=== PATIENT | female | born 1955 | race Caucasian/White ===

== ENCOUNTER → 2022-04-19 09:19 | Outpatient (CLI) | payer MEDICARE, OTHER, SELFPAY ==
--- NOTE | 2022-04-19 09:21 | DI.US.S_ITS ---
PROCEDURE: US PELVIC COMPLETE INDICATIONS: post menopausal bleeding x 8 mos TECHNIQUE: Real-time scanning was performed of the pelvic organs, with image documentation. Additional endovaginal scanning was necessary due to incomplete visualization of the adnexal and endometrial structures by transabdominal scanning. COMPARISON: None. FINDINGS: Uterus: Uterus is anteverted and mildly prominent in size at 9.8 x 3.1 x 5.3 cm. The myometrium is homogeneous. The endometrium measures 10 mm combined thickness. Ovaries: The right ovary measures 1.8 x 1.2 x 1.7 cm. The left is not visualized. The right ovary has a normal sonographic appearance. Other: No pathologic free abdominal or pelvic fluid. IMPRESSION: Thickened endometrium in a postmenopausal placement with history of bleeding. Endometrial biopsy is recommended as malignancy cannot be excluded. We strive to produce accurate, complete, and clear reports of imaging services. To assist us in improving patient care, this report was composed using standard report templates and voice recognition software. Therefore, it may contain abnormal punctuation, insertions and/or omissions. Occasional wrong-word or sound-alike substitutions may occur. Though we review the report and make efforts to correct it, we do recommend that the report be read carefully in proper context to recognize any text inaccuracies. Dictated by: Margo Palacios M.D. on 04/20/2022 at 16:14 Approved by: Margo Palacios M.D. on 04/20/2022 at 16:17
== END ==
PROVIDERS: Family Provider Family Medicine; PCP Physician Assistant; Referring Provider Physician Assistant; Visit Provider Physician Assistant
DX: N95.0 Postmenopausal bleeding (principal); N93.9 Abnormal uterine and vaginal bleeding, unspecified; Z79.890 Hormone replacement therapy; R06.83 Snoring; M16.12 Unilateral primary osteoarthritis, left hip; Z53.20 Procedure and treatment not carried out because of patient's decision for unspecified reasons; R93.89 Abnormal findings on diagnostic imaging of other specified body structures
CPT/HCPCS: 76830; 76856

== ENCOUNTER → 2022-06-08 11:50 | Outpatient (CLI) | payer MEDICARE, OTHER, SELFPAY ==
--- NOTE | 2022-06-08 11:52 | DI.MRI.S_ITS ---
PROCEDURE: MR HIP LT WO CON INDICATIONS: chronic left OA, numbness TECHNIQUE: Noncontrast coronal T1 spin echo and STIR through the bony pelvis. Coronal and axial T2 fast spin echo with fat saturation, sagittal T1 spin echo, and oblique axial T2 fast spin echo with fat saturation through the hip. COMPARISON: None. FINDINGS: Image quality: Excellent. Bones and joints: Left worse than right bilateral hip joint osteoarthritic changes are seen with superior joint space narrowing, thinning of articulating cartilages and subchondral sclerosis. Lateral marginal osteophyte formation is seen at left hip joint which can be seen associated with pincer type femoral acetabular impingement. No marrow edema. No intraosseous lesions or fractures. No avascular necrosis of the femoral heads. The visualized lower lumbar spine appears normally aligned. Tendons and ligaments: Left distal gluteus medius and minimus tendinosis at their insertions on greater trochanter is seen, without associated muscle atrophy. The nearby proximal iliotibial band also appears intact. The iliopsoas tendon appears intact, without adjacent bursal fluid collections or evidence for impingement syndrome. The origin of the hamstring tendon is intact at the ischial tuberosity, as well as the associated sacrotuberous ligament. The straight and reflected heads of the rectus femoris muscle origin appear intact, as well as the conjoint tendon. The ligamentum teres appears intact where visualized. Labrum and cartilage: Signal abnormality and contour irregularity involving superior anterior left hip labrum at 12 to 2 o'clock position is noted concerning for superior anterior labral tear. The alpha angle of the femur is within normal limits at less than 55 degrees. Soft tissues: Visualized muscles demonstrate normal bulk and internal signal. Quadratus femoris muscle demonstrates no internal edema to suggest ischiofemoral impingement. The proximal sciatic neurovascular bundle appears normal adjacent to the hamstring tendons. No free pelvic fluid. Bladder wall thickness is normal. Genitourinary structures and bowel loops appear normal where visualized. IMPRESSION: 1. Left worse than right bilateral hip joint osteoarthritis with prominent left lateral marginal osteophyte formation which can be seen associated with pincer type femoral acetabular impingement. No fracture or dislocation. No evidence of avascular necrosis of femoral head. 2. Mild distal left gluteus medius and minimus tendinosis at their insertion on greater trochanter. No other muscle or tendon signal abnormalities are seen. 3. Suggestion of superior anterior left hip labral tear at 12 to 2 o'clock position. Diffuse thinning of articulating cartilages in femoral head. Dictated by: Chris Bazan M.D. on 06/08/2022 at 14:23 Approved by: Chris Bazan M.D. on 06/08/2022 at 14:41
== END ==
PROVIDERS: Family Provider Family Medicine; PCP Physician Assistant; Referring Provider Physician Assistant; Visit Provider Physician Assistant
DX: M16.0 Bilateral primary osteoarthritis of hip (principal)
CPT/HCPCS: 73721

== ENCOUNTER → 2023-09-05 12:59 | Outpatient (CLI) | payer MEDICARE, OTHER, SELFPAY ==
[2023-09-05 19:49] LABS: Uric Acid 6.3 mg/dL (2.5-6.2)
== END ==
PROVIDERS: Family Provider Family Medicine; PCP Family Medicine; Visit Provider Family Medicine
DX: M10.9 Gout, unspecified (principal)
CPT/HCPCS: 84550

== ENCOUNTER → 2023-09-18 11:50 | Outpatient (CLI) | payer MEDICARE, OTHER, SELFPAY ==
[2023-09-18 19:26] LABS: Alanine Aminotransferase 19 IU/L (<35); Albumin 4.3 g/dL (3.5-5.0); Albumin Globulin Ratio 1.6 (1.0-2.8); Alkaline Phosphatase 70 U/L (38-126); Aspartate Aminotransferase 27 IU/L (14-36); BUN Creatinine Ratio 21.7 (6-22); Bilirubin Total 0.7 mg/dL (0.2-1.3); Blood Urea Nitrogen 15 mg/dL (7-17); Calcium 10.2 mg/dL (8.4-10.2); Carbon Dioxide 28 mmol/L (22-32); Chloride 103 mmol/L (98-107); Estimated Glomerular Filt Rate > 60 mL/min (>60); Globulin 2.7 g/dL (1.7-4.1); Glucose 118 mg/dL (80-110); HEMOLYSIS < 15 (0-50); Potassium 3.9 mmol/L (3.4-5.1); Sodium 140 mmol/L (137-145)
[2023-09-18 19:47] LABS: Add Manual Diff / Slide Review NO; Basophils Absolute Auto 0 /uL (0-100); Basophils Percent Auto 0.5 % (0-2); Eosinophils Absolute Auto 100 /uL (0-450); Eosinophils Percent Auto 1.6 % (2-4); Hematocrit 36.8 % (36-46); Hemoglobin 12.4 g/dL (12.0-16.0); Lymphocytes Absolute Auto 1700 /uL (1100-4500); Lymphocytes Percent Auto 26.1 % (25-40); Mean Corpuscular HGB Conc 33.8 % (30-36); Mean Corpuscular Hemoglobin 28.9 PG (26-34); Mean Corpuscular Volume 85.4 fL (80-100); Monocytes Absolute Auto 500 /uL (0-900); Monocytes Percent Auto 7.2 % (3-14); Neutrophils Absolute Auto 4200 /uL (1500-7000); Neutrophils Percent Auto 64.6 % (50-75); Platelet Count 240 X10^3/uL (150-400); Red Blood Cell Count 4.31 X10^6/uL (4.0-5.2); Red Cell Distribution Width 13.2 % (11.6-14.8); White Blood Cell Count 6.4 X10^3/uL (4.5-11.0)
== END ==
PROVIDERS: Family Provider Family Medicine; PCP Family Medicine; Visit Provider Physician Assistant
DX: R31.9 Hematuria, unspecified (principal); Z79.899 Other long term (current) drug therapy; Z85.79 Personal history of other malignant neoplasms of lymphoid, hematopoietic and related tissues
CPT/HCPCS: 80053; 85025; 87086

== ENCOUNTER 2023-10-15 09:59 | Day surgery (SDC) | payer MEDICARE, OTHER, SELFPAY ==
[2023-10-10 08:48] VITALS: BMI 26.4
[2023-10-15] VITALS (7 sets, daily range): BP systolic 127–166; BP diastolic 65–84; PULSE 59–84; RESP 9–20; TEMP 36.4–37.1; O2SAT 97–99; BMI 26.4
--- NOTE | 2023-10-15 | PATH_ITS ---
[facility] Accession Number: [id number] No. of containers..01 Tissue . 01 Material submitted: . endometrium - ENDOMETRIAL CURRETTINGS AND POLYP . 01 Diagnosis: Endometrial Curettings and Polyp: Portions of disordered proliferative endometrium; negative for glandular hyperplasia, cytologic atypia, or malignancy. Some endometrial fragments demonstrate prominent vessels, suggestive of polyp, if clinical and imaging studies are concordant. MRV 10/26/2023 0956 Local . 01 Electronically signed: . Pinky Mathis MD, Pathologist NPI- [id number] . 01 Gross description: . ENDOMETRIAL CURRETTINGS AND POLYP: Received in formalin are minute fragments of mucoid and hemorrhagic material measuring 2.0 x 2.0 x 0.4 cm in aggregate. Submitted in toto in 1 cassette. /JOSE DANIEL 10/16/20231939 Local . 01 Pathologist provided ICD-10: N95.0, N84.0 . 01 CPT . 476577 Specimen Comment: A courtesy copy of this report has been sent to [phone] Performed at: 01 [facility] [address] [place] [address] [address], [place], [place] [id number] MD Mario Herron MD Phone: [phone]
--- NOTE | 2023-10-15 11:47 | P.HPOB_ITS ---
History of Present Illness History of Present Illness Reason for admission: vaginal bleeding Narrative: Lucila Thompson is a 68 year old female 3 para 2 with postmenopausal bleeding, a 10 mm endometrial lining, and fragments of polyp on endometrial biopsy in the office. She presents for a D&C hysteroscopy with polypectomy. [facility] Medical History (Updated 10/10/23 @ 08:56 by Ariana Davidson RN) TOMAS (obstructive sleep apnea) Right hip pain Osteoarthritis Lymphoma History of gastric ulcer Family History (Updated 04/10/22 @ 16:04 by Renata Mena CMA) Mother Breast cancer Other Lung cancer Social History household members: spouse Smoking Status: Never smoker Meds Home Medications and Allergies Home Medications Medication Instructions Recorded Confirmed Type Bi Est compound topical 04/26/22 09/18/23 History progesterone micronized PO 04/26/22 09/18/23 History thyroid (pork) 30 mg tablet 30 mg PO DAILY 08/09/23 09/18/23 History (Victor Thyroid) allopurinol 100 mg tablet 100 mg PO DAILY #21 tabs 08/22/23 09/18/23 Rx allopurinol 300 mg tablet 300 mg PO DAILY #90 tabs 08/22/23 09/18/23 Rx colchicine 0.6 mg capsule 0.6 mg PO DAILY #90 caps 08/22/23 09/18/23 Rx Allergies Allergy/AdvReac Type Severity Reaction Status Date / Time morphine Allergy Intermediate PARALYSIS Verified 10/15/23 10:14 tetanus and diphtheria Allergy Intermediate SHINGLES Verified 10/15/23 10:14 toxoids azithromycin Allergy Mild Weakness Verified 10/15/23 10:14 metoclopramide Allergy Unknown TREMORS Verified 10/15/23 10:14 acetaminophen [From Percocet] Allergy Verified 10/15/23 10:14 oxycodone [From Percocet] Allergy Verified 10/15/23 10:14 Exam Vital Signs (past 8 hours): - 10/15/23 10:33 Temperature 98.2 F Pulse Rate 68 Respiratory Rate 16 Blood Pressure 166/84 H Pulse Oximetry 99 Oxygen Delivery Method Room Air Oxygen Delivery Method Room Air Narrative Exam Narrative: HEENT: No thyromegaly, no anterior cervical or supraclavicular lymphadenopathy. Lungs:Clear to auscultation bilaterally, no wheezes. Cardiovascular: Regular rate and rhythm, no murmurs, rubs, or gallops. Abdomen: No scars. No hepatosplenomegaly. No masses palpable. External genitalia: Normal Vagina: Atrophic Cervix: Normal Bimanual exam: 7 Week size anteverted uterus. Mobile. Extremities: No edema Assessment & Plan Assessment & Plan narrative: Assessment: 68-year-old 3 para 2 with postmenopausal bleeding, 10 mm endometrial lining, fragments of polyp in pathology from endometrial biopsy in the office Plan: D&C hysteroscopy with polypectomy The risks, benefits, and alternatives to the procedure were explained to the patient. The risks including bleeding, infection, and uterine perforation. She understands these risks and agrees to proceed. A full par Q was held and consent form was signed. Time Spent With Patient Time with patient: less than 30 minutes
--- NOTE | 2023-10-15 11:56 | PM.PREOP ---
Pre-operative Note Interval Note History & Physical reviewed/Exam performed by Physician: Yes Changes to H&P: No H&P completed within 30 days and has changed as indicated here:: 10/15/24
--- NOTE | 2023-10-15 12:23 | SUR.OPER ---
Lithotomy on padded OR bed, head on pillow, arms secured on padded arm boards at <90 degrees abduction. Legs secured in padded yellow fins stirrups.
--- NOTE | 2023-10-15 12:34 | SUR.OPER ---
Utilized Myosure device throughout surgical procedure.
--- NOTE | 2023-10-15 12:48 | PM.GYNOP.1 ---
Operative Date/Time/Diagnoses Date of procedure: 10/15/23 Time of procedure: 12:48 Pre-op diagnosis: Postmenopausal bleeding 10 mm endometrial lining Fragments of polyp on endometrial biopsy in the office Post-op diagnosis: same Procedure & Clinicians Procedure: Procedures Operation Date: 10/15/23 11:45 Actual Procedure Side Surgeon p Hysteroscopy D&C, polyp resection Francia Dang MD Indications: 68-year-old with postmenopausal bleeding, 10 mm endometrial lining on ultrasound, fragments of polyp on pathology from endometrial biopsy in the office Surgeon: Francia Dang Anesthesia Type: General (LMA) Operative Notes Findings: 7 week size anteverted uterus Both fallopian tube ostia observed Multiple polyps throughout the uterine cavity Possible 1 fibroid at the fundus of the uterus Closure Type: not applicable Specimen(s): endometrial curettings and endometrial polyp Estimated blood loss (mL): 5 Procedure in detail: After informed consent was obtained, the patient was taken to the operating room where she was placed in the dorsal supine position. After adequate LMA general anesthesia was achieved, she was placed in the dorsal lithotomy position, and prepped and draped in the usual sterile fashion. A time-out was performed. A bivalve speculum was placed into the vagina and the anterior lip of the cervix was grasped with a single-tooth tenaculum. The cervical os was sequentially dilated until the hysteroscope could pass easily into the endometrial cavity. Initial inspection revealed multiple fibroids throughout the uterine cavity, and a possible fibroid at the fundus of the uterus. Using the XL MyoSure, the polyps and fibroid were excised. There was a small polyp in the cornua on the left side and multiple attempts to excise this were unsuccessful due to the depth of the crevice. There was no bleeding noted. The hysteroscope was removed from the uterus. The single-tooth tenaculum was removed from the anterior lip of the cervix. The bivalve speculum was removed from the vagina. Sponge, lap, and instrument counts were correct x2. The patient tolerated the procedure well, and was taken to PACU in stable condition. Total cut time 72 seconds Fluid deficit 150 cc Complications: none Post-operative Condition: stable Disposition: PACU Plan for aftercare: Home after recovery
== END 2023-10-15 13:43 | disposition home or self-care (01) ==
PROVIDERS: Family Provider Family Medicine; PCP Family Medicine; Referring Provider Obstetrics & Gynecology; Visit Provider Obstetrics & Gynecology
PROC: 0UDB8ZZ Extraction of Endometrium, Via Natural or Artificial Opening Endoscopic (ICD-10-PCS; CPT 58558; principal; 2023-10-15 11:45)
DX: N95.0 Postmenopausal bleeding (principal); N84.0 Polyp of corpus uteri
CPT/HCPCS: 58558; J1885; J2405; J2704; J3010

== ENCOUNTER → 2025-07-13 12:02 | Outpatient (CLI) | payer MEDICARE, OTHER, SELFPAY | PROVIDERS: Family Provider Family Medicine; PCP Family Medicine; Visit Provider Family Medicine | DX: J02.9 Acute pharyngitis, unspecified (principal) | CPT/HCPCS: 87070 ==